=== PATIENT | female | born 1980 ===

== ENCOUNTER 2017-09-08 16:12 | Emergency (ER) | payer OTHER ==
[2017-09-08 16:19] VITALS: BP 146/96; PULSE 110; RESP 16; TEMP 97.3; O2SAT 99
--- NOTE | 2017-09-08 16:56 | ED PDOC ---
HPI: Female Pain Time Seen by Provider: 09/08/17 16:32 Chief Complaint (Nursing): Female Genitourinary Chief Complaint (Provider): Pelvic cramping History Per: Patient History/Exam Limitations: no limitations Onset/Duration Of Symptoms: Intermittent Episodes, Persistent Current Symptoms Are (Timing): Still Present Quality Of Discomfort: "Pain" Associated Symptoms: Nausea. denies: Vomiting, Back Pain Additional History Per: Patient Additional Complaint(s): 36yo female with history of 2 prior 1st term miscarriages, currently 8 weeks by LMP (06/29/17), comes to ER with complaints of ongoing pelvic cramping. She reports associated nausea but denies any vomiting, vaginal bleeding, back pain, dysuria or hematuria. Patient reports she recently tested positive for the MTHFR gene mutation and states she is currently following up with Dr. 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 She offers no other medical complaints. Abnormal Vaginal Bleeding: No Last Menstral Period: 06/29/17 : 3 Para: 0 Miscarriage: 2 Past Medical History Reviewed: Historical Data, Nursing Documentation, Vital Signs Vital Signs: Last Vital Signs Temp 97.3 F L 09/08/17 16:17 Pulse 110 H 09/08/17 16:17 Resp 16 09/08/17 16:17 BP 146/96 H 09/08/17 16:17 Pulse Ox 99 09/08/17 16:17 - Medical History PMH: No Chronic Diseases Other PMH: MTHFR gene mutation - Surgical History Surgical History: No Surg Hx - Family History Family History: States: No Known Family Hx - Living Arrangements Living Arrangements: With Family - Allergies Allergies/Adverse Reactions: Allergies Allergy/AdvReac Type Severity Reaction Status Date / Time No Known Allergies Allergy Verified 09/08/17 16:17 Review of Systems ROS Statement: Except As Marked, All Systems Reviewed And Found Negative Gastrointestinal: Positive for: Nausea. Negative for: Vomiting Genitourinary Female: Positive for: Pelvic Pain (cramping). Negative for: Dysuria, Frequency, Hematuria Musculoskeletal: Negative for: Back Pain Physical Exam - Reviewed Nursing Documentation Reviewed: Yes Vital Signs Reviewed: Yes - Physical Exam Appears: Positive for: Non-toxic, No Acute Distress Head Exam: Positive for: ATRAUMATIC, NORMAL INSPECTION, NORMOCEPHALIC Skin: Positive for: Normal Color Eye Exam: Positive for: Normal appearance Neck: Positive for: Normal, Supple Cardiovascular/Chest: Positive for: Regular Rate, Rhythm Respiratory: Positive for: Normal Breath Sounds Gastrointestinal/Abdominal: Positive for: Soft. Negative for: Tenderness, Mass , Guarding, Rebound Back: Positive for: Normal Inspection. Negative for: L CVA Tenderness, R CVA Tenderness Extremity: Positive for: Normal ROM. Negative for: Pedal Edema, Deformity Neurologic/Psych: Positive for: Alert, Oriented. Negative for: Motor/Sensory Deficits - Laboratory Results Result Diagrams: 09/08/17 17:34 09/08/17 17:34 Urine POC: Positive - ECG O2 Sat by Pulse Oximetry: 99 (RA) Pulse Ox Interpretation: Normal Medical Decision Making Medical Decision Making: Previous visits reviewed, patient is Rh positive. Impression: Pelvic cramping Plan: -- Labs -- US OB Transvaginal -- Urine dip Progress: 1654 UDip reviewed and is unremarkable. 1723 US Pelvis FINDINGS: UTERUS: Gestational sac: Single intrauterine gestation. Mean sac diameter measures 3.9 cm compatible with estimated gestational age of 9 weeks, 1 day. Yolk sac: Measures 0.4 cm. pole: [place]-rump length measures 2.2 cm compatible with estimated gestational age of 8 weeks, 6 days. Heart rate: 167 bpm. age (Ultrasound estimated): 9 weeks, 0 days [place]-gestational hemorrhage: Trace. Date of delivery (Ultrasound estimated) : 04/13/2018 Uterus measures 7.3 x 6.1 x 8.8 cm. Normal in size and appearance. CERVIX: Measures 4.1 cm. Long and closed. No cervical abnormality seen. RIGHT OVARY: Measures 3.0 x 2.1 x 2.3 cm. No mass lesion. Normal flow. LEFT OVARY: Measures 2.8 x 2.0 x 1.7 cm. No solid mass. Normal flow. FREE FLUID: None. OTHER FINDINGS: None. IMPRESSION: Single viable intrauterine gestation with average ultrasound age of 9 weeks, 0 days. heart rate 167 beats per minute. Cervix long and closed. Questionable trace subchorionic hemorrhage. 2019 Patient informed of US findings. Instructed to continue pelvic rest and to follow up with [employer] and internal medicine. Stable for discharge home. Scribe attestation: Documented by Nahed Hou acting as a scribe for Gordon Arenas DO. Provider attestation: All medical record entries made by the Scribe were at my direction and personally dictated by me. I have reviewed the chart and agree that the record accurately reflects my personal performance of the history, physical exam, medical decision making, and the department course for this patient. I have also personally directed, reviewed, and agree with the discharge instructions and disposition. Disposition - Clinical Impression Clinical Impression: Threatened - Patient ED Disposition Is Patient to be Admitted: No Counseled Patient/Family Regarding: Studies Performed, Diagnosis, Need For Followup, Rx Given - Disposition [facility] Disposition: Routine/Home Disposition Time: 18:01 Condition: STABLE Additional Instructions: Return to ER for any new or worsening symptoms. Continue pelvic rest until seen/cleared by your OB doctor. Instructions: Threatened Miscarriage Forms: [facility] (N[place]ian)
[2017-09-08 16:57] LABS: SQUAMOUS EPITHIAL 1 /hpf (0-5); URINE BACTERIA RARE (<OCC); URINE BILIRUBIN NEGATIVE (NEGATIVE); URINE BLOOD SMALL (NEGATIVE); URINE CLARITY CLEAR (Clear); URINE COLOR STRAW (YELLOW); URINE GLUCOSE (UA) NEG (Normal); URINE LEUKOCYTE ESTERASE NEG Leu/uL (Negative); URINE PROTEIN NEGATIVE (NEGATIVE); URINE UROBILINOGEN 0.2-1.0 mg/dL (0.2-1.0)
--- NOTE | 2017-09-08 17:34 | US ---
PROCEDURE: OB Pelvic Ultrasound HISTORY: 8 wks preg pelvic cramping LMP: 06/29/2017 COMPARISON: None available. FINDINGS: UTERUS: Gestational sac: Single intrauterine gestation. Mean sac diameter measures 3.9 cm compatible with estimated gestational age of 9 weeks, 1 day. Yolk sac: Measures 0.4 cm. pole: [place]-rump length measures 2.2 cm compatible with estimated gestational age of 8 weeks, 6 days. Heart rate: 167 bpm. age (Ultrasound estimated): 9 weeks, 0 days [place]-gestational hemorrhage: Trace. Date of delivery (Ultrasound estimated) : 04/13/2018 Uterus measures 7.3 x 6.1 x 8.8 cm. Normal in size and appearance. CERVIX: Measures 4.1 cm. Long and closed. No cervical abnormality seen. RIGHT OVARY: Measures 3.0 x 2.1 x 2.3 cm. No mass lesion. Normal flow. LEFT OVARY: Measures 2.8 x 2.0 x 1.7 cm. No solid mass. Normal flow. FREE FLUID: None. OTHER FINDINGS: None. IMPRESSION: Single viable intrauterine gestation with average ultrasound age of 9 weeks, 0 days. heart rate 167 beats per minute. Cervix long and closed. Questionable trace subchorionic hemorrhage.
[2017-09-08 17:37] LABS: BASO # 0.1 K/uL (0.0-0.2); BASO % 0.7 % (0.0-2.0); EOS # 0.2 K/uL (0.0-0.7); EOS % 1.8 % (0.0-4.0); HEMOGLOBIN 13.2 g/dL (12.0-16.0); LYMPH # 2.9 K/uL (1.0-4.3); LYMPH % 29.6 % (20.0-40.0); MEAN CELL VOLUME 88.7 fl (81.0-99.0); MEAN CORPUSCULAR HEMOGLOBIN 29.8 pg (27.0-31.0); MEAN CORPUSCULAR HGB CONC 33.6 g/dL (33.0-37.0); MEAN PLATELET VOLUME 9.5 fl (7.2-11.7); MONO # 0.6 K/uL (0.0-0.8); MONO % 5.7 % (0.0-10.0); NEUT % 62.2 % (50.0-75.0); RBC 4.42 Mil/uL (3.80-5.20); RED CELL DISTRIBUTION WIDTH 14.2 % (11.5-14.5); WHITE BLOOD COUNT 9.7 K/uL (4.8-10.8)
[2017-09-08 17:59] LABS: ALB/GLOB RATIO 1.1 (1.0-2.1); ALBUMIN 3.9 g/dL (3.5-5.0); ALT/SGPT 35 U/L (9-52); AST/SGOT 22 U/L (14-36); BLOOD UREA NITROGEN 9 mg/dl (7-17); CALCIUM 8.9 mg/dL (8.4-10.2); GFR AFRICAN-AMERICAN > 60; GFR NON-AFRICAN AMERICAN > 60
== END 2017-09-08 20:50 | disposition home or self-care (01) ==
LOC: H.ER 16:12
DX: O20.0 Threatened abortion (principal); Z3A.09 9 weeks gestation of pregnancy